=== PATIENT | male | born 1970 | race Caucasian/White ===

== ENCOUNTER 2019-11-04 14:48 | Emergency (ER) | payer OTHER ==
[2019-11-04 15:18] VITALS: BMI 28.1
[2019-11-04] MEDS ORDERED: SODIUM CHLORIDE 0.9% 1000 ML INFUS.BAG IV ONE (15:42)
[2019-11-04] MEDS ORDERED: MECLIZINE HCL 25 MG TABLET (FP) PO ONE (16:11)
[2019-11-04 16:14] LABS: BASO % 3.7 % (0-2.0); EOS % 1.9 % (0-4.5); HEMATOCRIT 42.8 % (35.4-49); HEMOGLOBIN 14.6 GM/dL (11.7-16.9); LYMPH % 41.5 % (8-40); MCH 32.7 pg (25.7-33.7); MCHC 34.1 g/dl (32.0-35.9); MEAN PLT VOLUME 7.3 fl (7.5-11.1); MONO % 10.1 % (3.8-10.2); NEUT % 42.8 % (42.8-82.8); PLATELET COUNT 404 K/MM3 (134-434); RBC 4.45 M/mm3 (4.00-5.60); RDW 12.5 % (11.9-15.9); WHITE BLOOD COUNT 9.6 K/mm3 (4.0-10.0)
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
[2019-11-04] MEDS ORDERED: MECLIZINE HCL 25 MG TABLET (FP) ONE (16:53)
[2019-11-04 18:10] LABS: ALBUMIN 4.1 g/dl (3.4-5.0); ALK PHOS 86 U/L (45-117); ANION GAP 6 MMOL/L (8-16); BILIRUBIN,TOTAL 0.2 mg/dL (0.2-1); BLOOD UREA NITROGEN 13.9 mg/dL (7-18); CALCIUM 9.3 mg/dL (8.5-10.1); CHLORIDE 106 mmol/L (98-107); CO2 28 mmol/L (21-32); CREATININE 1.1 mg/dL (0.55-1.3); GLUCOSE,RANDOM 84 mg/dL (74-106); POTASSIUM 4.2 mmol/L (3.5-5.1); SGOT/AST 25 U/L (15-37); SGPT/ALT 30 U/L (13-61); SODIUM 140 mmol/L (136-145); TOT PROT 7.3 g/dl (6.4-8.2)
[2019-11-04 18:42] VITALS: BP 126/73; PULSE 78; TEMP 98
--- NOTE | 2019-11-05 17:40 | EKG ---
Test Reason : Blood Pressure : / mmHG Vent. Rate : 053 BPM Atrial Rate : 053 BPM P-R Int : 154 ms QRS Dur : 126 ms QT Int : 444 ms P-R-T Axes : 032 034 049 degrees QTc Int : 416 ms SINUS BRADYCARDIA NON-SPECIFIC INTRA-VENTRICULAR CONDUCTION BLOCK ABNORMAL ECG WHEN COMPARED WITH ECG OF 28-JUN-2009 11:06, NO SIGNIFICANT CHANGE WAS FOUND Confirmed by JOSY SHAIKH, ROBERT ([id number]) on 11/05/2019 5:40:28 PM Referred By: AMARI Confirmed By:ROBERT FERRIS MD
== END 2019-11-04 18:35 | disposition home or self-care (01) ==
LOC: JER 14:48
PROC: 3E0337Z Introduction of Electrolytic and Water Balance Substance into Peripheral Vein, Percutaneous Approach (ICD-10-PCS; principal; 2019-11-04)
DX: R42 Dizziness and giddiness (principal); Z88.8 Allergy status to other drugs, medicaments and biological substances
CPT/HCPCS: 36415; 70450-TC; 80053; 80185; 82550; 82553; 82962; 84484; 85025; 93005; 93010; 99285-25; J7030

== ENCOUNTER → 2022-09-08 | Emergency (ER) | payer OTHER ==
[2022-09-08 14:17] VITALS: BP 159/90; PULSE 93; RESP 18; TEMP 98.1; BMI 29.0
== END ==
LOC: JER 14:06
DX: S09.90XA Unspecified injury of head, initial encounter (principal); W22.8XXA Striking against or struck by other objects, initial encounter
CPT/HCPCS: 99281-25